=== PATIENT | female | born 1970 | race Caucasian/White ===

== ENCOUNTER 2022-12-05 14:13 | Emergency (ER) | payer MEDICAID ==
[~2022-12-05] VITALS: Ht 162.6 cm; Wt 105.0 kg
[2022-12-05] MEDS ORDERED: KETOROLAC 60MG/2ML VIAL IM ONE (15:45)
[2022-12-05] MEDS ORDERED: HYDROCODONE/ACETAMINOPHEN 10/325MG TABLET PO ONE (15:45)
[2022-12-05] MEDS ORDERED: CYCL10TA21 MT (19:20)
[2022-12-05] MEDS ORDERED: IBUP-2030 MT (19:20)
[2022-12-05 19:40] VITALS: BP 127/86
== END 2022-12-05 19:40 | disposition home or self-care (01) ==
LOC: ER 14:25
DX: R10.9 Unspecified abdominal pain (principal); Z98.890 Other specified postprocedural states
CPT/HCPCS: 74176; 99284

== ENCOUNTER 2025-05-17 16:41 | Emergency (ER) | payer OTHER ==
[~2025-05-17] VITALS: Ht 152.4 cm; Wt 102.0 kg
[~2025-05-17 16:41] MED LIST: CYCL10TA21 MT; IBUP-2030 MT
[2025-05-17 16:55] VITALS: TEMP 36.7; O2SAT 99
[2025-05-17] MEDS ORDERED: TETRACAINE 0.5% OPHTH DROPS 4ML BOTHEYE ONE (21:15)
[2025-05-17] MEDS ORDERED: FLUORESCEIN SODIUM 1MG/STRIP LEFTEYE ONE (21:15)
[2025-05-17] MEDS ORDERED: OCUFLX RIGHTEYE (23:29)
[2025-05-17 23:32] VITALS: BP 144/85; PULSE 71; RESP 18; O2SAT 100
[2025-05-17] MEDS: FLUORESCEIN SODIUM 1MG/STRIP LEFTEYE NR (23:39)
[2025-05-17] MEDS: TETRACAINE 0.5% OPHTH DROPS 4ML BOTHEYE NR (23:39)
== END 2025-05-17 23:40 | disposition home or self-care (01) ==
LOC: ER 16:41
DX: S05.01XA Injury of conjunctiva and corneal abrasion without foreign body, right eye, initial encounter (principal); H11.31 Conjunctival hemorrhage, right eye; M19.90 Unspecified osteoarthritis, unspecified site; Z79.899 Other long term (current) drug therapy; Z98.890 Other specified postprocedural states; X58.XXXA Exposure to other specified factors, initial encounter; Y93.89 Activity, other specified; Y92.89 Other specified places as the place of occurrence of the external cause; Y99.8 Other external cause status
CPT/HCPCS: 99283